=== PATIENT | female | born 1970 | race Caucasian/White ===

== ENCOUNTER 2018-02-27 05:34 | Inpatient (IN) | payer MEDICARE, OTHER, MEDICAID ==
[2018-02-27] MEDS ORDERED: ACETAMINOPHEN TAB 650MG DOSE (2X325MG) PO (06:30)
[2018-02-27] MEDS ORDERED: MOM 30ML SUSPENSION UDC PO (06:30)
[2018-02-27] MEDS ORDERED: MAALOX 30 ML SUSP *UDC PO (06:30)
[2018-02-27] MEDS: CARISOPRODOL 350 MG TAB PO ×3 (11:51→20:06)
[2018-02-27] MEDS: PREGABALIN 75 MG CAP(LYRICA) PO ×2 (11:51→20:06)
[2018-02-27] MEDS: traZODone 50 MG TAB PO (20:06)
[2018-02-27] MEDS: clonazePAM 0.5 MG TAB PO (20:06)
[2018-02-27] MEDS: AMITRIPTYLINE 50 MG TAB PO (20:07)
[2018-02-27] MEDS: AUGMENTIN 875 MG TAB PO (22:14)
[2018-02-28] MEDS: AUGMENTIN 875 MG TAB PO ×2 (09:36→20:26)
[2018-02-28] MEDS: clonazePAM 0.5 MG TAB PO (09:36)
[2018-02-28] MEDS: PREGABALIN 75 MG CAP(LYRICA) PO ×3 (09:36→20:26)
[2018-02-28] MEDS: CARISOPRODOL 350 MG TAB PO ×3 (09:37→20:26)
[2018-02-28] MEDS: FENTANYL REMOVAL DOCUMENTATION MISC XX ×2 (09:51→16:30)
[2018-02-28] MEDS: fentaNYL 75 MCG/HR PATCH TD (09:57)
[2018-02-28] MEDS: fentaNYL 75 MCG/HR PATCH TOP (16:59)
[2018-02-28] MEDS: AMITRIPTYLINE 50 MG TAB PO (20:26)
[2018-03-01] MEDS: guaiFENesin ER 600 MG TAB PO ×2 (09:47→20:20)
[2018-03-01] MEDS: PREGABALIN 75 MG CAP(LYRICA) PO ×2 (09:47→20:20)
[2018-03-01] MEDS: METHYLPHENIDATE 5 MG TAB PO ×2 (09:48→14:36)
[2018-03-01] MEDS: CARISOPRODOL 350 MG TAB PO ×3 (09:48→20:20)
[2018-03-01] MEDS: LevoFLOXacin 750 MG TABLET PO (10:16)
[2018-03-01] MEDS: AMITRIPTYLINE 50 MG TAB PO (20:20)
[2018-03-01] MEDS: traZODone 50 MG TAB PO (20:20)
[2018-03-01] MEDS: clonazePAM 0.5 MG TAB PO (20:20)
[2018-03-01] MEDS: OLANZapine ORAL DISINTEGRATING TAB 5MG PO (21:58)
[2018-03-02] MEDS: LevoFLOXacin 750 MG TABLET PO (06:05)
[2018-03-02 07:33] LABS: HEMATOCRIT 40.3 % (36.0-47.0); HEMOGLOBIN 13.1 g/dl (12.0-15.5); MEAN CORPUSCULAR HGB CONC 32.5 g/dl (32.0-36.5); MEAN CORPUSCULAR VOLUME 83.1 fl (80.0-96.0); PLATELET COUNT, AUTOMATED 199 10^3/uL (150-450); RED BLOOD COUNT 4.85 10^6/uL (4.00-5.40); RED CELL DISTRIBUTION WIDTH 17.3 % (11.5-14.5)
[2018-03-02 07:53] LABS: ALBUMIN 3.2 GM/DL (3.2-5.2); ALBUMIN/GLOBULIN RATIO 0.84 (1.00-1.93); ALKALINE PHOSPHATASE 80 U/L (45-117); ALT/SGPT 30 U/L (12-78); ANION GAP 6 MEQ/L (8-16); AST/SGOT 25 U/L (7-37); BILIRUBIN,TOTAL 0.7 MG/DL (0.2-1.0); BLOOD UREA NITROGEN 10 MG/DL (7-18); CALCIUM LEVEL 8.6 MG/DL (8.5-10.1); CARBON DIOXIDE LEVEL 30 MEQ/L (21-32); CHLORIDE LEVEL 108 MEQ/L (98-107); CREATININE FOR GFR 0.95 MG/DL (0.55-1.30); GLOMERULAR FILTRATION RATE > 60.0 (>58); GLUCOSE, FASTING 101 MG/DL (70-100); POTASSIUM SERUM 4.1 MEQ/L (3.5-5.1); SODIUM LEVEL 144 MEQ/L (136-145)
[2018-03-02] MEDS: guaiFENesin ER 600 MG TAB PO ×2 (08:11→20:18)
[2018-03-02] MEDS: METHYLPHENIDATE 5 MG TAB PO ×2 (08:11→14:16)
[2018-03-02] MEDS: CARISOPRODOL 350 MG TAB PO ×3 (08:11→20:18)
[2018-03-02] MEDS: PREGABALIN 75 MG CAP(LYRICA) PO ×2 (08:12→20:18)
[2018-03-02] MEDS ORDERED: FENTANYL REMOVAL DOCUMENTATION MISC XX (10:15)
[2018-03-02] MEDS: FENTANYL REMOVAL DOCUMENTATION MISC XX (10:43)
[2018-03-02] MEDS: busPIRone 10 MG TAB PO ×2 (10:45→20:18)
[2018-03-02] MEDS: fentaNYL 75 MCG/HR PATCH TOP (10:48)
[2018-03-02] MEDS: AMITRIPTYLINE 50 MG TAB PO (20:18)
[2018-03-02] MEDS: clonazePAM 0.5 MG TAB PO (20:18)
[2018-03-02] MEDS: traZODone 50 MG TAB PO (20:18)
[2018-03-03] MEDS: LevoFLOXacin 750 MG TABLET PO (06:22)
[2018-03-03] MEDS: busPIRone 10 MG TAB PO (09:30)
[2018-03-03] MEDS: guaiFENesin ER 600 MG TAB PO (09:30)
[2018-03-03] MEDS: CARISOPRODOL 350 MG TAB PO ×2 (09:30→13:52)
[2018-03-03] MEDS: PREGABALIN 75 MG CAP(LYRICA) PO (09:31)
[2018-03-03] MEDS: METHYLPHENIDATE 5 MG TAB PO ×2 (09:31→13:52)
== END 2018-03-03 13:30 | disposition home or self-care (01) | DRG 885 ==
LOC: M ED 05:34 → M ED INP 06:25 → M PSY 08:11
DX: F25.1 Schizoaffective disorder, depressive type (principal); Z79.899 Other long term (current) drug therapy; F41.9 Anxiety disorder, unspecified; F17.210 Nicotine dependence, cigarettes, uncomplicated; M54.9 Dorsalgia, unspecified; Z98.51 Tubal ligation status; Z90.49 Acquired absence of other specified parts of digestive tract; J06.9 Acute upper respiratory infection, unspecified; Z79.891 Long term (current) use of opiate analgesic; M25.561 Pain in right knee; M96.1 Postlaminectomy syndrome, not elsewhere classified